=== PATIENT | female | born 1970 | race Caucasian/White ===

== ENCOUNTER → 2017-09-16 | Outpatient (CLI) | payer OTHER, SELFPAY | PROVIDERS: Family Provider Emergency Medicine; Visit Provider Obstetrics & Gynecology | DX: N64.59 Other signs and symptoms in breast (principal); N95.1 Menopausal and female climacteric states; R92.8 Other abnormal and inconclusive findings on diagnostic imaging of breast | CPT/HCPCS: 76641; 77066; G0204 ==

== ENCOUNTER → 2018-07-27 14:50 | Outpatient (POV) | payer OTHER, SELFPAY | PROVIDERS: Visit Provider Nurse Practitioner Acute Care | DX: Z00.00 Encounter for general adult medical examination without abnormal findings (principal) ==

== ENCOUNTER → 2018-08-12 09:15 | Outpatient (CLI) | payer OTHER, SELFPAY ==
--- NOTE | 2018-08-12 09:19 | CT_ITS ---
CT abdomen pelvis w con CLINICAL INDICATION: Left lower quadrant pain, back pain, diverticulitis ITS.REASON: DIVERTICULITIS ORDERING PHYSICIAN: Deisy Ying PATIENT AGE: 48 years COMPARISON: 11/10/2016 TECHNIQUE: Axial images obtained with sagittal and coronal reformats. All CT scans at the facility use one or more dose reduction, viz: automated exposure control, ma/kV adjustment per patient size (including targeted exams where dose is matched to indication, i.e. head), or iterative reconstruction technique. PROCEDURE: Oral Contrast: Gastroview IV Contrast: 75 mL of Isovue-[id number]. FINDINGS: No acute finding in the lung bases. The liver, gallbladder, spleen, adrenal glands, pancreas, and kidneys have an unremarkable appearance. There is a whirl sign involving the jejunal branches of the superior mesenteric artery. This may be seen with small bowel volvulus. The small bowel however does not appear dilated. This finding was not present on an older CT scan of 11/10/2016. Clinical significance is uncertain without evidence of small bowel obstruction. This could be an intermittent finding. Please correlate with clinical parameters and follow-up exam if symptoms of small bowel structures/volvulus developed. There is no evidence of sigmoid volvulus. There is diverticulosis of the descending and sigmoid colon but no evidence of diverticulitis. No evidence of appendicitis. There has been a prior hysterectomy. No pelvic mass abnormal fluid collection or focal inflammatory change evident within the pelvis. No acute bony anomaly. IMPRESSION: 1. Whirl sign involving the jejunal branches of the superior mesenteric artery. No convincing evidence of small bowel obstruction. This could conceivably be causing some mesenteric ischemic symptoms. Please correlate with clinical parameters. 2. Diverticulosis of the descending sigmoid colon. No evidence of diverticulitis.
== END ==
PROVIDERS: PCP Family Medicine; Visit Provider Nurse Practitioner Acute Care
DX: R10.32 Left lower quadrant pain (principal); M54.5 Low back pain
CPT/HCPCS: 74177; Q9967

== ENCOUNTER → 2018-09-28 08:35 | Outpatient (POV) | payer SELFPAY | PROVIDERS: Visit Provider Nurse Practitioner Acute Care | DX: Z00.00 Encounter for general adult medical examination without abnormal findings (principal) ==

== ENCOUNTER 2018-11-15 21:28 | Emergency (ER) | payer OTHER, SELFPAY ==
[2018-11-15 21:30] VITALS: BP 142/86; PULSE 73; RESP 17; TEMP 36.2; O2SAT 97; BMI 28.7
--- NOTE | 2018-11-15 21:51 | [facility].EDDENT ---
ED Disposition Clinical Impression: Dental abscess Disposition: Home, Self-Care Condition on Discharge: Good Instructions: DI for Dental Pain Additional Instructions: use meds and call pcp for follow up Prescriptions: Clindamycin HCl [Clindamycin HCl 300mg Cap] 300 mg PO Q8 #15 cap Referrals: Calderon Reardon MD [Primary Care Provider] - - Critical Care Critical Care Time: No Attestation: On 11/15/18, the high probability of a clinically significant, sudden or life threatening deterioration of the following system(s) required my full and direct attention, intervention and personal management. The time I documented below is in addition to time spent performing reported procedures but includes the following listed in this critical care notation. Medical Decision Making - Medical Records Medical records reviewed: Yes: I reviewed the patient's medical records. - Jose De Jesus Inquiry Pt receiving controlled substance: No Vital Signs: 11/15/18 21:30 Temperature 97.2 F L Temperature Source Oral Pulse Rate [Right Brachial] 73 Respiratory Rate 17 Blood Pressure [Right Arm] 142/86 H Blood Pressure Mean [Right Arm] 104 Blood Pressure Source [Right Arm] Automatic Cuff Blood Pressure Position [Right Arm] Sitting 02 Sat by Pulse Oximetry 97 Oxygen Delivery Method Room Air Orders (Tests/Meds): ED MEDICATIONS Generic Name Dose Route Start Last Admin Trade Name Freq PRN Reason Stop Dose Admin Ceftriaxone Sodium 1 gm/ 50 mls @ 100 mls/hr 11/15/18 22:00 Sodium Chloride IV 11/29/18 21:59 Q24H MEGHAN Protocol Sodium Chloride 500 mls @ 999 mls/hr 11/15/18 22:00 Sod Chlor 0.9% 1000ml Bag IV 11/15/18 22:30 .Q31M MEGHAN Sodium Chloride 10 ml 11/15/18 21:57 Saline Flush 10ml Syringe IV 12/15/18 21:56 NEEDED PRN Maintain IV Site Discontinued Medications Generic Name Dose Route Start Last Admin Trade Name Freq PRN Reason Stop Dose Admin Methylprednisolone Sodium Succinate 125 mg 11/15/18 21:54 Solu-Medrol 125mg/2ml Vial IV 11/15/18 21:55 ONCE ONE Morphine Sulfate 4 mg 11/15/18 21:55 Morphine 2mg/Ml Syringe IV 11/15/18 21:56 ONCE ONE Ondansetron HCl 4 mg 11/15/18 21:55 Zofran 4mg/2ml Vial IV 11/15/18 21:56 ONCE ONE Dental HPI - General Chief complaint: Dental/Oral Stated complaint: tooth pain abcessed Time Seen by Provider: 11/15/18 21:51 Mode of Arrival: Ambulatory Source of Information: Patient, Medical Record Limitations: No Limitations Description of Symptoms (Recalled from ER Triage Doc. by RN): Believes she has an abscessed tooth on her lower right side. Reports chills, unsure of temperature. States she had 5 amoxicillin left from previous prescription and took those yesterday and today. She reports a throbbing pain in her head, throat, and across my mouth. Took tylenol for pain at 1999. - History of Present Illness HPI Narrative: swelling and rt lower jaw pain from dental infection MD Complaint: tooth pain Onset (ago): hour(s) Severity: moderate Context: history of dental caries Associated symptoms: gum swelling Treatment prior to arrival: topical analgesic - Related Data Home Medications Medication Instructions Recorded Confirmed albuterol sulfate HFA 90 2 puff INHALATION Q4H g 10/30/17 11/15/18 mcg/actuation aerosol inhaler amlodipine 5 mg tablet 5 mg PO ONCE 10/30/17 11/15/18 ranolazine ER 500 mg 500 mg PO Q12H 10/30/17 11/15/18 tablet,extended release,12 hr buspirone 10 mg tablet 10 mg PO BID 11/05/17 11/15/18 phenazopyridine 100 mg tablet 100 mg PO TID tab 11/05/17 11/15/18 Atorvastatin Calcium [Atorvastatin 10 mg PO QHS 10/22/18 11/15/18 10mg Tab] Estradiol 1 mg PO DAILY 10/22/18 11/15/18 Fluoxetine HCl [Prozac
--- NOTE | 2018-11-15 21:56 | ED_ITS ---
ED Disposition Clinical Impression: Dental abscess Disposition: Home, Self-Care Condition on Discharge: Good Instructions: DI for Dental Pain Additional Instructions: use meds and call pcp for follow up Prescriptions: Clindamycin HCl [Clindamycin HCl 300mg Cap] 300 mg PO Q8 #15 cap Referrals: Calderon Reardon MD [Primary Care Provider] - - Critical Care Critical Care Time: No Attestation: On 11/15/18, the high probability of a clinically significant, sudden or life threatening deterioration of the following system(s) required my full and direct attention, intervention and personal management. The time I documented below is in addition to time spent performing reported procedures but includes the following listed in this critical care notation. Medical Decision Making - Medical Records Medical records reviewed: Yes: I reviewed the patient's medical records. - Jose De Jesus Inquiry Pt receiving controlled substance: No Vital Signs: 11/15/18 21:30 Temperature 97.2 F L Temperature Source Oral Pulse Rate [Right Brachial] 73 Respiratory Rate 17 Blood Pressure [Right Arm] 142/86 H Blood Pressure Mean [Right Arm] 104 Blood Pressure Source [Right Arm] Automatic Cuff Blood Pressure Position [Right Arm] Sitting 02 Sat by Pulse Oximetry 97 Oxygen Delivery Method Room Air Orders (Tests/Meds): ED MEDICATIONS Generic Name Dose Route Start Last Admin Trade Name Freq PRN Reason Stop Dose Admin Ceftriaxone Sodium 1 gm/ 50 mls @ 100 mls/hr 11/15/18 22:00 Sodium Chloride IV 11/29/18 21:59 Q24H MEGHAN Protocol Sodium Chloride 500 mls @ 999 mls/hr 11/15/18 22:00 Sod Chlor 0.9% 1000ml Bag IV 11/15/18 22:30 .Q31M MEGHAN Sodium Chloride 10 ml 11/15/18 21:57 Saline Flush 10ml Syringe IV 12/15/18 21:56 NEEDED PRN Maintain IV Site Discontinued Medications Generic Name Dose Route Start Last Admin Trade Name Freq PRN Reason Stop Dose Admin Methylprednisolone Sodium Succinate 125 mg 11/15/18 21:54 Solu-Medrol 125mg/2ml Vial IV 11/15/18 21:55 ONCE ONE Morphine Sulfate 4 mg 11/15/18 21:55 Morphine 2mg/Ml Syringe IV 11/15/18 21:56 ONCE ONE Ondansetron HCl 4 mg 11/15/18 21:55 Zofran 4mg/2ml Vial IV 11/15/18 21:56 ONCE ONE Dental HPI - General Chief complaint: Dental/Oral Stated complaint: tooth pain abcessed Time Seen by Provider: 11/15/18 21:51 Mode of Arrival: Ambulatory Source of Information: Patient, Medical Record Limitations: No Limitations Description of Symptoms (Recalled from ER Triage Doc. by RN): Believes she has an abscessed tooth on her lower right side. Reports chills, unsure of temperature. States she had 5 amoxicillin left from previous prescription and took those yesterday and today. She reports a throbbing pain in her head,
[2018-11-15 22:50] VITALS: BP 168/78; PULSE 68; RESP 16; TEMP 36.6; O2SAT 99
== END 2018-11-15 22:52 | disposition home or self-care (01) ==
PROVIDERS: Emergency Provider Emergency Medicine; PCP Emergency Medicine
DX: K04.7 Periapical abscess without sinus (principal); K02.9 Dental caries, unspecified; Z51.81 Encounter for therapeutic drug level monitoring; F17.210 Nicotine dependence, cigarettes, uncomplicated; K21.9 Gastro-esophageal reflux disease without esophagitis; F41.8 Other specified anxiety disorders; E78.5 Hyperlipidemia, unspecified; I10 Essential (primary) hypertension
CPT/HCPCS: 96365; 96367; 96375; 99282; J2405